=== PATIENT | female | born 1975 | race Caucasian/White ===

== ENCOUNTER 2017-04-26 19:48 | Emergency (ER) | payer BC ==
[2017-04-26] MEDS ORDERED: MORPHINE SULFATE 4 MG/ML SYRINGE IV STA (21:01)
[2017-04-26] MEDS ORDERED: ONDANSETRON 4 MG/2 ML VIAL IVP STA (21:01)
[2017-04-26] MEDS ORDERED: RX INFO: IV CONTRAST WAS GIVEN 1 EACH MISC MISCELLANE PRN (21:01)
[2017-04-26] MEDS ORDERED: SODIUM CHLORIDE 0.9% 1,000 ML IV STA (21:01)
--- NOTE | 2017-04-26 21:05 | ED ---
Nausea/Vomiting/Diarrhea HPI - General Chief complaint: Nausea/Vomiting/Diarrhea Stated complaint: Vomiting x 2 Time Seen by Provider: 04/26/17 20:55 Source: patient, family Mode of arrival: ambulatory Limitations: no limitations - History of Present Illness Initial comments: This 42-year-old white female presents complaining of nausea and vomiting present over the last 2 days. States that it'll occur with any food or fluid intake. She's had occasional loose stools as well. She complains of some abdominal pain which is primarily in the midepigastric region but also present in the bilateral lower abdomen. She denies any blood in her stool or black tarry stools. She does have a history of Crohn's disease. She's never had any surgeries on her abdomen and related to him to the Crohn's. She denies any fevers or chills. No urinary symptoms. She further relates a recent slight cough. No other complaints or modifying factors. - Related Data Home Medications Medication Instructions Recorded Confirmed ALPRAZolam [Xanax] 0.5 mg PO BID PRN 04/26/17 04/26/17 Acetaminophen [Tylenol Arthritis] 650 mg PO Q8H PRN 04/26/17 04/26/17 Albuterol Nebulized [Ventolin 2.5 mg INHALATION RT-Q6H PRN 04/26/17 04/26/17 Nebulized] DULoxetine HCL [Cymbalta] 30 mg PO DAILY 04/26/17 04/26/17 DULoxetine HCL [Cymbalta] 60 mg PO DAILY 04/26/17 04/26/17 Estradiol 0.05MG/24Hr Biwkptch 1 patch TRANSDERM Q48H 04/26/17 04/26/17 [Vivelle-Dot 0.05 MG] Previous Rx's Medication Instructions Recorded Ondansetron [Zofran ODT] 8 mg PO Q8HR PRN #12 tab 04/26/17 traMADol HCl [Ultram] 50 - 100 mg PO Q6H PRN #15 tab 04/26/17 Allergies Allergy/AdvReac Type Severity Reaction Status Date / Time aspirin Allergy Unknown Verified 04/26/17 21:24 hydromorphone [From Dilaudid] Allergy Nausea & Verified 04/26/17 21:24 Vomiting ibuprofen Allergy Abdominal Verified 04/26/17 21:24 Pain prochlorperazine Allergy Unknown Verified 04/26/17 21:24 [From Compazine] Review of Systems ROS Statement: Those systems with pertinent positive or pertinent negative responses have been documented in the HPI. ROS Other: All systems not noted in ROS Statement are negative. Past Medical History Past Medical History: No Reported History History of Any Multi-Drug Resistant Organisms: None Reported Past Surgical History: Hysterectomy Past Psychological History: Anxiety, Depression Smoking Status: Current every day smoker Past Alcohol Use History: None Reported Past Drug Use History: None Reported General Exam - General Exam Comments Initial Comments: GENERAL: The patient is well nourished and well hydrated. VITAL SIGNS: Heart rate, blood pressure, respiratory rate reviewed as recorded in nurse's notes. EYES: Pupils are round and reactive. Extraocular movements are intact. No conjunctival / lid redness or swelling. ENT: No external evidence of injury, swelling, or ecchymosis. Airway is patent. Throat is clear. NECK: Nontender. No swelling or evidence of injury. No subcutaneous emphysema. Trachea is midline. No thyroid mass. HEART: Regular rate and rhythm. Good peripheral pulses. LUNGS/CHEST: Breath sounds clear and equal bilaterally. No rales, rhonchi, or wheezes. No ecchymosis, subcutaneous emphysema, or tenderness. ABDOMEN: There is mild tenderness present to the bilateral lower abdomen as well as the midepigastric region. No palpable masses or organomegaly. No peritoneal signs. No abdominal wall swelling or ecchymosis. EXTREMITIES: No extremity tenderness. Normal muscle tone and function. No thoracolumbar tenderness. NEUROLOGIC: Sensation is grossly intact. Cranial nerve exam reveals face is symmetrical, tongue is midline, speech is clear. SKIN: No abrasions or ecchymosis is noted. No induration or masses noted. PSYCHIATRIC: Alert and oriented. Appropriate behavior and judgment. Limitations: no limitations Course Vital Signs 04/26/17 20:05 Temperature 98.2 F Pulse Rate 89 Respiratory 20 Rate Blood Pressure 152/101 O2 Sat by Pulse 97 Oximetry Medical Decision Making - Medical Decision Making The patient was seen and examined. She is thoroughly hydrated. She also receives some IV fluids and morphine and Zofran. The laboratory is reviewed and is unremarkable. The urinalysis does show some ketones. The patient had a chest x-ray due to her cough. This does not show any acute process. The computed tomography scan of the abdomen and pelvis is also ordered. The computed tomography scan shows some hemangiomas of the liver as well as a peritoneal inclusion cyst. No acute inflammatory intra-abdominal processes noted. She is feeling improved on recheck. She is still minimally nauseated but the pain is relieved. Exact cause of her symptoms are not definitively determine but it is felt as though she potentially could have a gastroenteritis. It is felt less likely that this is a Crohn's flare. Return parameters are discussed and she was subsequently discharge. - Lab Data Result diagrams: 04/26/17 22:00 04/26/17 22:00 Lab Results 04/26/17 04/26/17 04/26/17 Range/Units 22:00 22:00 22:00 WBC 10.0 (3.8-10.6) k/uL RBC 4.82 (3.80-5.40) m/uL Hgb 16.1 H (11.4-16.0) gm/dL Hct 46.0 (34.0-46.0) % MCV 95.5 (80.0-100.0) fL MCH 33.4 (25.0-35.0) pg MCHC 35.0 (31.0-37.0) g/dL RDW 13.3 (11.5-15.5) % Plt Count 266 (150-450) k/uL Neutrophils % 73 % Lymphocytes % 19 % Monocytes % 5 % Eosinophils % 1 % Basophils % 1 % Neutrophils # 7.3 (1.3-7.7) k/uL Lymphocytes # 1.9 (1.0-4.8) k/uL Monocytes # 0.5 (0-1.0) k/uL Eosinophils # 0.1 (0-0.7) k/uL Basophils # 0.1 (0-0.2) k/uL Sodium 140 (137-145) mmol/L Potassium 4.0 (3.5-5.1) mmol/L Chloride 103 (98-107) mmol/L Carbon Dioxide 23 (22-30) mmol/L Anion Gap 14 mmol/L BUN 14 (7-17) mg/dL Creatinine 0.72 (0.52-1.04) mg/dL Est GFR (MDRD) Af Amer >60 (>60 ml/min/1.73 sqM) Est GFR (MDRD) Non-Af >60 (>60 ml/min/1.73 sqM) Glucose 87 (74-99) mg/dL Calcium 9.9 (8.4-10.2) mg/dL Total Bilirubin 1.6 H (0.2-1.3) mg/dL AST 29 (14-36) U/L ALT 26 (9-52) U/L Alkaline Phosphatase 73 (38-126) U/L Total Protein 8.6 H (6.3-8.2) g/dL Albumin 5.1 H (3.5-5.0) g/dL Amylase 68 (30-110) U/L Lipase 64 (23-300) U/L Urine Color Dark Yellow Urine Appearance Cloudy H (Clear) Urine pH 5.5 (5.0-8.0) Ur Specific [place] 1.026 (1.001-1.035) Urine Protein 1+ H (Negative) Urine Glucose (UA) Negative (Negative) Urine Ketones 4+ H (Negative) Urine Blood Small H (Negative) Urine Nitrite Negative (Negative) Urine Bilirubin 1+ H (Negative) Urine Urobilinogen 4.0 (<2.0) mg/dL Ur Leukocyte Esterase Negative (Negative) Urine RBC 5 (0-5) /hpf Ur Squamous Epith Cells 13 H (0-4) /hpf Urine Mucus Many H (None) /hpf Disposition Clinical Impression: Abdominal pain, Nausea and vomiting, Dehydration, Diarrhea, Cough, Hypertension , Gastroenteritis Disposition: HOME SELF-CARE Condition: Good Instructions: Acute Nausea and Vomiting (ED), Abdominal Pain (ED), Gastroenteritis (ED), Dehydration (ED) Prescriptions: Ondansetron [Zofran ODT] 8 mg PO Q8HR PRN #12 tab PRN Reason: Nausea traMADol HCl [Ultram] 50 - 100 mg PO Q6H PRN #15 tab PRN Reason: Pain Referrals: Cristino Aldana DO [Primary Care Provider] - 1-2 days Time of Disposition: 23:28
[2017-04-26 22:11] LABS: Basophils # (A) 0.1 k/uL (0-0.2); Basophils % (A) 1 %; CH 33.7; CHCM 35.4; Eosinophils # (A) 0.1 k/uL (0-0.7); Eosinophils % (A) 1 %; HDW 2.25; HGB 16.1 gm/dL (11.4-16.0); Luc # (Auto) 0.15; Luc % (Auto) 2; Lymphocytes # (A) 1.9 k/uL (1.0-4.8); Lymphocytes % (A) 19 %; MCH 33.4 pg (25.0-35.0); MCV 95.5 fL (80.0-100.0); Monocytes # (A) 0.5 k/uL (0-1.0); Monocytes % (A) 5 %; Neutrophils # (A) 7.3 k/uL (1.3-7.7); Neutrophils % (A) 73 %; RBC 4.82 m/uL (3.80-5.40); RDW 13.3 % (11.5-15.5); WBC (Perox) 9.92
[2017-04-26 22:16] LABS: Appearance,Urine Cloudy (Clear); Bilirubin,Urine 1+ (Negative); Glucose,Urine (UA) Negative (Negative); Ketones,Urine 4+ (Negative); Leukocyte Esterase,Urine Negative (Negative); Mucus,Urine Many /hpf; Nitrite,Urine Negative (Negative); PH, Urine 5.5 (5.0-8.0); Particle Count 16256; Protein,Urine 1+ (Negative); RBC,Urine 5 /hpf (0-5); Specific Gravity,Urine 1.026 (1.001-1.035); Squamous Epithelial Cell,Urine 13 /hpf (0-4); UA Billing (MACRO vs. MICRO) MICRO
[2017-04-26 22:21] LABS: Amylase 68 U/L (30-110); Anion Gap 14 mmol/L; Calcium 9.9 mg/dL (8.4-10.2); Carbon Dioxide 23 mmol/L (22-30); Chloride 103 mmol/L (98-107); Glucose 87 mg/dL (74-99); Non-African American GFR(MDRD) >60 (>60 ml/min/1.73 sqM); Sodium 140 mmol/L (137-145); Total Bilirubin 1.6 mg/dL (0.2-1.3); Total Protein 8.6 g/dL (6.3-8.2)
[2017-04-26 22:22] LABS: AST 29 U/L (14-36); Blood Urea Nitrogen 14 mg/dL (7-17)
[2017-04-26 22:23] LABS: ALT 26 U/L (9-52); Alkaline Phosphatase 73 U/L (38-126)
--- NOTE | 2017-04-26 22:40 | XR ---
INDICATION: Cough COMPARISON: None. FINDINGS: Frontal and lateral views of the chest are obtained. The cardiomediastinal silhouette is within normal limits. Lungs are clear. No pleural effusions. Bony elements are within normal limits. IMPRESSION: No acute cardiopulmonary disease.
--- NOTE | 2017-04-26 23:03 | CT ---
INDICATION: Abdominal pain TECHNIQUE: Helical CT acquisition through the abdomen and pelvis is performed from the lung bases to the ischial tuberosities following the administration of IV contrast. Limited delayed postcontrast images were acquired through the kidneys. Sagittal and coronal reformatted images are available. This CT exam was performed using one or more of the following dose reduction techniques: automated exposure control, adjustment of the mA and/or kV according to patient size, and/or use of iterative reconstruction technique. DOSIMETRY: DLP 864.90 mGy-cm; CTDIvol 22.90 mGy. COMPARISON: None available. FINDINGS: The lung bases are clear. There are multiple hypoattenuating lesions in the liver, the majority subcentimeter and too small to characterize. There is a 13 mm hypoattenuating lesion in hepatic segment 8 (3-11) with peripheral nodular enhancement suggested on early postcontrast images and centripetal fill-in on delayed postcontrast images (5-9), most likely a hemangioma. The gallbladder is unremarkable. The spleen, pancreas, and adrenal glands are within normal limits. Both kidneys are similar in size and enhancement. There is no hydronephrosis or perinephric stranding. There is no evidence of bowel obstruction. The visualized appendix is normal. There is no acute diverticulitis. Urinary bladder is incompletely distended uterus is surgically absent. There is a 4.2 x 1.5 cm left pelvic cystic lesion (3-70), possibly an adnexal cyst or peritoneal inclusion cyst. There is no significant free pelvic fluid. Aorta and IVC are unremarkable. There is no adenopathy. No acute osseous findings. IMPRESSION: 1. No CT evidence of acute or inflammatory intra-abdominal process. 2. Status post hysterectomy. Left pelvic cyst measuring 4.2 x 1.5 cm, possibly an adnexal cyst or peritoneal inclusion cyst. 3. Multiple hypoattenuating lesions in the liver, the largest in hepatic segment 8 measuring 13 mm with imaging features suggesting hemangioma. Additional lesions too small to characterize. Correlation with liver ultrasound may be performed as clinically indicated.
[2017-04-26] MEDS ORDERED: METOCLOPRAMIDE 5 MG/ML 2 ML VIAL IVP STA (23:30)
[2017-04-27 00:02] VITALS: BP 155/92; PULSE 80; RESP 16; TEMP 98.8
== END 2017-04-27 | disposition home or self-care (01) ==
LOC: EC 19:48
DX: E86.0 Dehydration (principal); K52.9 Noninfective gastroenteritis and colitis, unspecified; R05 Cough; I10 Essential (primary) hypertension; F32.9 Major depressive disorder, single episode, unspecified; F41.9 Anxiety disorder, unspecified; F17.200 Nicotine dependence, unspecified, uncomplicated; Z79.899 Other long term (current) drug therapy; Z79.3 Long term (current) use of hormonal contraceptives; Z88.6 Allergy status to analgesic agent; Z88.5 Allergy status to narcotic agent; Z88.8 Allergy status to other drugs, medicaments and biological substances
CPT/HCPCS: 36415; 80053; 82150; 83690; 85025; 81001; 71020; 74177; 99284; 96374; 96375; J2270; J2405; Q9967

== ENCOUNTER → 2020-05-19 | Outpatient (CLI) | payer BC | END | disposition home or self-care (01) | LOC: LABWHC1 12:23 | PROVIDERS: ATTEND Family Medicine | DX: R06.02 Shortness of breath (principal); R07.9 Chest pain, unspecified; J02.9 Acute pharyngitis, unspecified ==

== ENCOUNTER 2020-08-09 09:21 | Observation (INO) | payer BC ==
[2020-08-09] MEDS ORDERED: ASPIRIN 81 MG PO STA (09:27)
[2020-08-09] MEDS ORDERED: NITROGLYCERIN OINT 1 INCH/GM PACKET TOPICAL STA (09:27)
--- NOTE | 2020-08-09 09:32 | ED ---
General Adult HPI - General Stated complaint: Chest Pain Time Seen by Provider: 08/09/20 09:21 Source: patient, RN notes reviewed, old records reviewed - History of Present Illness Initial comments: This is a 45-year-old female with past medical history significant for high blood pressure high cholesterol. Patient also states she is a very strong family history of heart disease. Patient states yesterday she started having ch est pain is been constant since and getting slowly worse per patient states when she woke up this morning the chest pain continued and she was also very short of breath. Patient denies any radiation of the pain. Patient denies nausea vomiting per patient denies any diaphoretic episode. Patient states she went to an urgent care and they gave her nitroglycerin and it brought the pain from a 6 down to a one. Patient states exertion does seem to make the pain worse. Patient denies any palpable chest pain. Patient denies any abdominal pain patient denies any vomiting or diarrhea. Patient denies any recent fever chills or cough per patient denies any swelling to the legs or calf tenderness. - Related Data Home Medications Medication Instructions Recorded Confirmed ALPRAZolam [Xanax] 0.5 mg PO DAILY PRN 04/26/17 08/09/20 Acetaminophen [Tylenol Arthritis] 650 mg PO Q8H PRN 04/26/17 08/09/20 Albuterol Nebulized [Ventolin 2.5 mg INHALATION RT-Q6H PRN 04/26/17 08/09/20 Nebulized] DULoxetine HCL [Cymbalta] 60 mg PO DAILY 04/26/17 08/09/20 Atorvastatin [Lipitor] 20 mg PO HS 08/09/20 08/09/20 Estradiol [Vivelle-Dot 0.075 MG] 1 patch TRANSDERM TUFR 08/09/20 08/09/20 L.acidoph,Paracasei, B.lactis 1 cap PO DAILY 08/09/20 08/09/20 [Probiotic] Ubidecarenone [Co Q-10] 100 mg PO DAILY 08/09/20 08/09/20 lisinopriL [Zestril] 10 mg PO DAILY 08/09/20 08/09/20 Allergies Allergy/AdvReac Type Severity Reaction Status Date / Time aspirin Allergy Unknown Verified 04/26/17 21:24 hydromorphone [From Dilaudid] Allergy Nausea & Verified 04/26/17 21:24 Vomiting ibuprofen Allergy Abdominal Verified 04/26/17 21:24 Pain prochlorperazine Allergy Unknown Verified 04/26/17 21:24 [From Compazine] Review of Systems ROS Statement: Those systems with pertinent positive or pertinent negative responses have been documented in the HPI. ROS Other: All systems not noted in ROS Statement are negative. Past Medical History Past Medical History: No Reported History History of Any Multi-Drug Resistant Organisms: None Reported Past Surgical History: Hysterectomy Past Psychological History: Anxiety, Depression Past Alcohol Use History: None Reported Past Drug Use History: None Reported General Exam - General Exam Comments Initial Comments: GENERAL: Patient is well-developed and well-nourished. Patient is nontoxic and well- hydrated and is in mild distress. ENT: Neck is soft and supple. No significant lymphadenopathy is noted. Oropharynx is clear. Moist mucous membranes. Neck has full range of motion without eliciting any pain. EYES: The sclera were anicteric and conjunctiva were pink and moist. Extraocular movements were intact and pupils were equal round and reactive to light. Eyelids were unremarkable. PULMONARY: Unlabored respirations. Good breath sounds bilaterally. No audible rales rhonchi or wheezing was noted. CARDIOVASCULAR: There is a regular rate and rhythm without any murmurs gallops or rubs. ABDOMEN: Soft and nontender with normal bowel sounds. SKIN: Skin is clear with no lesions or rashes and otherwise unremarkable. NEUROLOGIC: Patient is alert and oriented x3. Cranial nerves II through XII are grossly intact. Motor and sensory are also intact. Normal speech, volume and content. Symmetrical smile. MUSCULOSKELETAL: Normal extremities with adequate strength and full range of motion. LYMPHATICS: No significant lymphadenopathy is noted PSYCHIATRIC: Normal psychiatric evaluation. Course Vital Signs 08/09/20 09:28 Temperature 97.9 F Pulse Rate 85 Respiratory 18 Rate Blood Pressure 122/94 O2 Sat by Pulse 97 Oximetry Medical Decision Making - Medical Decision Making EKG shows normal sinus rhythm at 84 bpm DE interval is on a 56 QRS is 86 QT interval 372 QTC is 439. Patient's EKG shows no ST segment elevation or depression. Chest x-ray showed no acute abnormality. Patient continues to have chest pain. I started the patient on heparin because the unstable angina picture I spoke with Dr. Raines he agreed to admit the patient admitted the patient I wrote admitting orders I consult cardiology continued heparin has been Nitropaste. - Lab Data Result diagrams: 08/09/20 09:40 08/09/20 09:40 Lab Results 08/09/20 08/09/20 08/09/20 Range/Units 09:40 09:40 09:40 WBC 7.8 (3.8-10.6) k/uL RBC 4.17 (3.80-5.40) m/uL Hgb 12.8 (11.4-16.0) gm/dL Hct 38.5 (34.0-46.0) % MCV 92.3 (80.0-100.0) fL MCH 30.7 (25.0-35.0) pg MCHC 33.3 (31.0-37.0) g/dL RDW 12.1 (11.5-15.5) % Plt Count 269 (150-450) k/uL Neutrophils % 58 % Lymphocytes % 29 % Monocytes % 7 % Eosinophils % 3 % Basophils % 1 % Neutrophils # 4.5 (1.3-7.7) k/uL Lymphocytes # 2.2 (1.0-4.8) k/uL Monocytes # 0.6 (0-1.0) k/uL Eosinophils # 0.3 (0-0.7) k/uL Basophils # 0.1 (0-0.2) k/uL PT 9.6 (9.0-12.0) sec INR 0.9 (<1.2) APTT 22.2 (22.0-30.0) sec Sodium 138 (137-145) mmol/L Potassium 4.3 (3.5-5.1) mmol/L Chloride 105 (98-107) mmol/L Carbon Dioxide 26 (22-30) mmol/L Anion Gap 7 mmol/L BUN 11 (7-17) mg/dL Creatinine 0.65 (0.52-1.04) mg/dL Est GFR (CKD-EPI)AfAm >90 (>60 ml/min/1.73 sqM) Est GFR (CKD-EPI)NonAf >90 (>60 ml/min/1.73 sqM) Glucose 101 H (74-99) mg/dL Calcium 9.1 (8.4-10.2) mg/dL Magnesium 1.8 (1.6-2.3) mg/dL Total Bilirubin 0.4 (0.2-1.3) mg/dL AST 25 (14-36) U/L ALT 27 (4-34) U/L Alkaline Phosphatase 96 (38-126) U/L Troponin I (0.000-0.034) ng/mL Total Protein 6.5 (6.3-8.2) g/dL Albumin 4.0 (3.5-5.0) g/dL 08/09/20 Range/Units 09:40 WBC (3.8-10.6) k/uL RBC (3.80-5.40) m/uL Hgb (11.4-16.0) gm/dL Hct (34.0-46.0) % MCV (80.0-100.0) fL MCH (25.0-35.0) pg MCHC (31.0-37.0) g/dL RDW (11.5-15.5) % Plt Count (150-450) k/uL Neutrophils % % Lymphocytes % % Monocytes % % Eosinophils % % Basophils % % Neutrophils # (1.3-7.7) k/uL Lymphocytes # (1.0-4.8) k/uL Monocytes # (0-1.0) k/uL Eosinophils # (0-0.7) k/uL Basophils # (0-0.2) k/uL PT (9.0-12.0) sec INR (<1.2) APTT (22.0-30.0) sec Sodium (137-145) mmol/L Potassium (3.5-5.1) mmol/L Chloride (98-107) mmol/L Carbon Dioxide (22-30) mmol/L Anion Gap mmol/L BUN (7-17) mg/dL Creatinine (0.52-1.04) mg/dL Est GFR (CKD-EPI)AfAm (>60 ml/min/1.73 sqM) Est GFR (CKD-EPI)NonAf (>60 ml/min/1.73 sqM) Glucose (74-99) mg/dL Calcium (8.4-10.2) mg/dL Magnesium (1.6-2.3) mg/dL Total Bilirubin (0.2-1.3) mg/dL AST (14-36) U/L ALT (4-34) U/L Alkaline Phosphatase (38-126) U/L Troponin I <0.012 (0.000-0.034) ng/mL Total Protein (6.3-8.2) g/dL Albumin (3.5-5.0) g/dL Critical Care Time Critical Care Time: Yes Total Critical Care Time: 35 Disposition Clinical Impression: Unstable angina pectoris Disposition: ADMITTED IP TO THIS HOSP Referrals: Cristino Aldana DO [Primary Care Provider] - 1-2 days Time of Disposition: 11:04
[2020-08-09 09:58] LABS: Basophils # (A) 0.1 k/uL (0-0.2); Basophils % (A) 1 %; Eosinophils # (A) 0.3 k/uL (0-0.7); Eosinophils % (A) 3 %; HCT 38.5 % (34.0-46.0); HGB 12.8 gm/dL (11.4-16.0); Lymphocytes # (A) 2.2 k/uL (1.0-4.8); Lymphocytes % (A) 29 %; MCH 30.7 pg (25.0-35.0); MCHC 33.3 g/dL (31.0-37.0); MCV 92.3 fL (80.0-100.0); Mean Platelet Volume 7.1; Monocytes # (A) 0.6 k/uL (0-1.0); Monocytes % (A) 7 %; Neutrophils # (A) 4.5 k/uL (1.3-7.7); Neutrophils % (A) 58 %; Platelet Count 269 k/uL (150-450); RBC 4.17 m/uL (3.80-5.40); RDW 12.1 % (11.5-15.5); WBC 7.8 k/uL (3.8-10.6)
[2020-08-09 10:06] LABS: ALT 27 U/L (4-34); AST 25 U/L (14-36); African American GFR (CKD) >90 (>60 ml/min/1.73 sqM); Alkaline Phosphatase 96 U/L (38-126); Anion Gap 7 mmol/L; Blood Urea Nitrogen 11 mg/dL (7-17); Calcium 9.1 mg/dL (8.4-10.2); Carbon Dioxide 26 mmol/L (22-30); Chloride 105 mmol/L (98-107); Glucose 101 mg/dL (74-99); Magnesium 1.8 mg/dL (1.6-2.3); Non-African American GFR(CKD) >90 (>60 ml/min/1.73 sqM); Potassium 4.3 mmol/L (3.5-5.1); Sodium 138 mmol/L (137-145); Total Bilirubin 0.4 mg/dL (0.2-1.3); Total Protein 6.5 g/dL (6.3-8.2)
[2020-08-09 10:07] LABS: INR 0.9 (<1.2); Partial Thromboplastin Time 22.2 sec (22.0-30.0); Prothrombin Time 9.6 sec (9.0-12.0)
--- NOTE | 2020-08-09 10:07 | XR ---
EXAMINATION TYPE: XR chest 2V DATE OF EXAM: 08/09/2020 COMPARISON: 05/06/2017 TECHNIQUE: PA and lateral views submitted. HISTORY: Chest pain and shortness of breath FINDINGS: The lungs are clear and there is no pneumothorax, pleural effusion, or focal pneumonia. Mild hypert rophic change of the spine. No overt failure. Arthropathy of the right shoulder. Heart size normal. IMPRESSION: 1. No acute process.
[2020-08-09] MEDS ORDERED: LORazepam 2 MG/ML INJ IV STA (10:50)
[2020-08-09] MEDS ORDERED: HEPARIN SODIUM,PORCINE 5,000 UNIT/ML 1 ML VIAL IV ONE (11:03)
[2020-08-09] MEDS ORDERED: NITROGLYCERIN SL TABS 0.4 MG TAB SUBLINGUAL PRN (11:05)
[2020-08-09] MEDS ORDERED: HEPARIN SOD,PORK IN 0.45% NACL 25,000 UNIT in 0.45% NACL 1 250ML.BAG IV SCH (11:15)
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
[2020-08-09] MEDS ORDERED: ESTRADIOL 0.075 MG/24 HR TOPICAL SCH (15:15)
[2020-08-09] MEDS: ACETAMINOPHEN TAB 325 MG TAB PO PRN ×2 (15:26→20:47)
[2020-08-09] MEDS ORDERED: MAG HYDROX/AL HYDROX/SIMETH 30 ML, HYOSCYAMINE ELIXIR 10 ML, LIDOCAINE VISCOUS 2% 10 ML PO PRN ×3 (15:30)
[2020-08-09] MEDS ORDERED: NITROGLYCERIN OINT 1 INCH/GM PACKET TOPICAL SCH (16:00)
[2020-08-09] MEDS ORDERED: RX INFO: IV CONTRAST WAS GIVEN 1 EACH MISC MISCELLANE PRN (20:45)
[2020-08-09] MEDS: ALPRAZolam 0.5 MG TAB PO PRN (20:47)
[2020-08-09] MEDS ORDERED: ATORVASTATIN 20 MG TAB PO SCH (21:00)
--- NOTE | 2020-08-09 21:51 | CT ---
EXAMINATION TYPE: CT chest angio for PE DATE OF EXAM: 08/09/2020 COMPARISON: Chest x-ray same date HISTORY: chest pain CT DLP: 521.2 mGycm Automated exposure control for dose reduction was used. CONTRAST: CT Chest for pulmonary embolism performed with with IV Contrast, patient injected with 80cc mL of Iso efe 370. FINDINGS: LUNGS: The lungs are remarkable for some probable scarring or subsegmental atelectatic changes, some bandlike parenchymal bands present, there is no concerning parenchymal mass or nodule identified. T here is no pleural effusion or pneumothorax seen. The tracheobronchial tree is patent. MEDIASTINUM: There is satisfactory enhancement of the pulmonary artery and its branches, there is no CT evidence for pulmonary embolism. There are no greater than 1 cm hilar or mediastinal lymph nodes. No pericardial effusion is seen. AORTA: No additional significant abnormality is seen. OTHER: No additional significant abnormality is seen. IMPRESSION: No pulmonary embolism.
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
[2020-08-09] MEDS: BUDESONIDE 1 MG/2 ML NEBU INHALATION SCH (22:34)
[2020-08-09] MEDS: IPRATROPIUM-ALBUTEROL 3 ML NEB INHALATION SCH (22:35)
[2020-08-10 04:35] VITALS: TEMP 98.1
[2020-08-10] MEDS: IPRATROPIUM-ALBUTEROL 3 ML NEB INHALATION SCH ×2 (05:16→10:55)
[2020-08-10] MEDS: BUDESONIDE 1 MG/2 ML NEBU INHALATION SCH (05:16)
[2020-08-10] MEDS: ALPRAZolam 0.5 MG TAB PO PRN (05:18)
--- NOTE | 2020-08-10 08:00 | ECHOF ---
Referral Reason:Chest pain MEASUREMENTS -------- HEIGHT: 175.3 cm WEIGHT: 108.9 kg BP: 128/84 IVSd: 1.6 cm (0.6 - 1.1) LVIDd: 3.4 cm (3.9 - 5.3) LVPWd: 1.6 cm (0.6 - 1.1) IVSs: 1.7 cm LVIDs: 2.3 cm LVPWs: 1.9 cm RVIDd: 3.1 cm (< 3.3) LAESV Index (A-L): 16.21 ml/m Ao Diam: 3.0 cm (2.0 - 3.7) AV Cusp: 2.2 cm (1.5 - 2.6) EPSS: 0.3 cm MV E Elías: 0.66 m/s MV DecT: 249 ms MV A Elías: 0.81 m/s MV E/A Ratio: 0.81 RAP: 5.00 mmHg RVSP: 27.55 mmHg MV EF SLOPE: 38.99 mm/s (70 - 150) MV EXCURSION: 17.91 mm (> 18.000) FINDINGS -------- Resting tachycardia (HR>100bpm). This was a technically difficult study with suboptimal apical views. The left ventricular size is normal. There is moderate concentric left ventricular hypertrophy. O verall left ventricular systolic function is normal with, an EF between 60 - 65 %. The diastolic fi lling pattern is normal for the age of the patient 10.33. The right ventricle is normal in size. Normal LA size by volume 22+/-6 ml/m2. The right atrial size is normal. 5.0mg of Lumason was utilized for enhancement of images Interatrial and interventricular septum intact. The aortic valve is trileaflet and appears structurally normal. There is no evidence of aortic regu rgitation. There is no evidence of aortic stenosis. No mitral regurgitation. Mild tricuspid regurgitation present. There is no evidence of pulmonary hypertension. The right v entricular systolic pressure, as measured by Doppler, is 27.55mmHg. There is no pulmonic regurgitation present. The aortic root size is normal. IVC Not well visulized. There is no pericardial effusion. CONCLUSIONS -------- 1. The left ventricular size is normal. 2. There is moderate concentric left ventricular hypertrophy. 3. Overall left ventricular systolic function is normal with, an EF between 60 - 65 %. 4. The diastolic filling pattern is normal for the age of the patient 10.33 5. Mild tricuspid regurgitation present. INSIDE STEWARD/STEWARDESS: Katlyn Rodriguez RDCS
[2020-08-10 08:14] VITALS: BP 124/87; RESP 14
[2020-08-10] MEDS: PANTOPRAZOLE 40 MG TABLET PO SCH ×2 (08:27→08:30)
[2020-08-10] MEDS ORDERED: ASPIRIN 81 MG PO SCH (09:00)
[2020-08-10] MEDS ORDERED: lisinopriL 10 MG TAB PO SCH (09:00)
[2020-08-10] MEDS ORDERED: ASPIRIN 325 MG TAB PO SCH (09:00)
[2020-08-10] MEDS ORDERED: DULoxetine HCL 60 MG CAPSULE.DR PO SCH (09:00)
[2020-08-10] MEDS: ACETAMINOPHEN TAB 325 MG TAB PO PRN (09:50)
--- NOTE | 2020-08-10 10:25 | P.PN ---
Subjective HISTORY OF PRESENTING ILLNESS This is a pleasant 45-year-old female past medical history significant for hypertension, dyslipidemia, depression, COPD and Crohn's. He denies prior history of coronary artery disease and does not follow with a director of aviation for any reason. She is seen and examined sitting up in bed in no acute distress. She has had no further symptoms of chest discomfort. She continues to feel short of breath. She has been started on bronchodilators and steroids per the primary care team. Echocardiogram reveals preserved LV systolic function with ejection fraction 55-60%. Blood pressure 124/87 heart rate 90 afebrile maintaining oxygen saturation on room air. Laboratory data reviewed, cardiac enzymes negative 3. PHYSICAL EXAMINATION CONSTITUTIONAL: No apparent distress. HEENT: Head is normocephalic. Pupils are equal, round. Sclerae anicteric. Mucous membranes of the mouth are moist. No JVD. No carotid bruit. CHEST EXAMINATION: Lungs are clear to auscultation. No chest wall tenderness is noted on palpation or with deep breathing. HEART EXAMINATION: Regular rate and rhythm. S1, S2 heard. No murmurs, gallops or rub. EXTREMITIES: 2+ peripheral pulses, no lower extremity edema and no calf tenderness. ASSESSMENT Chest pain, atypical for angina. Hypertension Dyslipidemia COPD Crohn's disease Depression Morbid obesity, BMI 35 PLAN An acute coronary event has been ruled out. Stable from a cardiac perspective. Follow-up in the office with Dr. Kramer in one to 2 weeks. Ongoing medical management. Nurse Practitioner note has been reviewed, I agree with a documented findings and plan of care. Patient was seen and examined. Objective - Vital Signs Vital signs: Vital Signs Temp 98.1 F 08/10/20 08:12 Pulse 90 08/10/20 08:12 Resp 14 08/10/20 08:12 BP 124/87 08/10/20 08:12 Pulse Ox 94 L 08/10/20 08:12 Intake & Output 08/09/20 08/10/20 08/10/20 18:59 06:59 18:59 Weight 108.862 kg Other: Voiding Method Toilet Toilet # Voids 1 - Labs CBC & Chem 7: 08/09/20 09:40 08/09/20 09:40
[2020-08-10 10:58] VITALS: PULSE 80
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
== END 2020-08-10 11:31 | disposition home or self-care (01) ==
LOC: EC 09:21 → 3NCARDOBS 11:06 → UNDODISOB 16:41
PROVIDERS: ADMIT Hospitalist; ATTEND Hospitalist
DX: J44.1 Chronic obstructive pulmonary disease with (acute) exacerbation (principal); E66.01 Morbid (severe) obesity due to excess calories; K21.9 Gastro-esophageal reflux disease without esophagitis; E78.5 Hyperlipidemia, unspecified; I10 Essential (primary) hypertension; K50.90 Crohn's disease, unspecified, without complications; F41.9 Anxiety disorder, unspecified; F32.9 Major depressive disorder, single episode, unspecified; E78.00 Pure hypercholesterolemia, unspecified; M47.899 Other spondylosis, site unspecified; R60.9 Edema, unspecified; G89.29 Other chronic pain; M54.9 Dorsalgia, unspecified; M54.89 Other dorsalgia; Z79.899 Other long term (current) drug therapy; Z79.890 Hormone replacement therapy; Z88.6 Allergy status to analgesic agent; Z88.5 Allergy status to narcotic agent; Z88.8 Allergy status to other drugs, medicaments and biological substances; Z90.710 Acquired absence of both cervix and uterus; Z68.35 Body mass index [BMI] 35.0-35.9, adult; Z87.19 Personal history of other diseases of the digestive system; Z87.01 Personal history of pneumonia (recurrent); Z87.09 Personal history of other diseases of the respiratory system; Z87.440 Personal history of urinary (tract) infections; Z98.890 Other specified postprocedural states; Z90.722 Acquired absence of ovaries, bilateral; Z90.79 Acquired absence of other genital organ(s); Z82.49 Family history of ischemic heart disease and other diseases of the circulatory system; Z80.1 Family history of malignant neoplasm of trachea, bronchus and lung; Z81.2 Family history of tobacco abuse and dependence
CPT/HCPCS: 93005 ×2; 96376; 96374; 96375; 99291; 36415; 94640 ×2; 93306; 80053; 83735; 84484; 85025; 85610; 85730; 71046; 71275; G0378 ×2; J2060; J1644 ×2; Q9950; Q9967

== ENCOUNTER → 2021-01-10 | Outpatient (CLI) | payer BC | END | disposition home or self-care (01) | LOC: CPPFTMAIN 13:59 | PROVIDERS: ATTEND Family Medicine | DX: J44.9 Chronic obstructive pulmonary disease, unspecified (principal) | CPT/HCPCS: 94060; 94726; 94729 ==

== ENCOUNTER 2021-09-18 13:26 | Emergency (ER) | payer BC ==
[2021-09-18 14:31] VITALS: TEMP 98.4
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
[2021-09-18] MEDS ORDERED: SODIUM CHLORIDE 0.9% 500 ML 500 ML IV STA (15:29)
[2021-09-18 16:07] LABS: ALT 20 U/L (4-34); AST 29 U/L (14-36); African American GFR (CKD) >90 (>60 ml/min/1.73 sqM); Albumin 4.4 g/dL (3.5-5.0); Alkaline Phosphatase 68 U/L (38-126); Anion Gap 7 mmol/L; Blood Urea Nitrogen 11 mg/dL (7-17); Calcium 9.5 mg/dL (8.4-10.2); Carbon Dioxide 25 mmol/L (22-30); Chloride 105 mmol/L (98-107); Glucose 92 mg/dL (74-99); Non-African American GFR(CKD) >90 (>60 ml/min/1.73 sqM); Potassium 4.6 mmol/L (3.5-5.1); Sodium 137 mmol/L (137-145); Total Bilirubin 0.6 mg/dL (0.2-1.3); Total Protein 7.3 g/dL (6.3-8.2)
[2021-09-18 16:13] LABS: Basophils # (A) 0.1 k/uL (0-0.2); Basophils % (A) 1 %; Eosinophils # (A) 0.2 k/uL (0-0.7); Eosinophils % (A) 3 %; HCT 43.4 % (34.0-46.0); HGB 15.2 gm/dL (11.4-16.0); Lymphocytes # (A) 1.8 k/uL (1.0-4.8); Lymphocytes % (A) 31 %; MCH 33.1 pg (25.0-35.0); MCHC 35.1 g/dL (31.0-37.0); MCV 94.1 fL (80.0-100.0); Mean Platelet Volume 7.2; Monocytes # (A) 0.3 k/uL (0-1.0); Monocytes % (A) 5 %; Neutrophils # (A) 3.3 k/uL (1.3-7.7); Neutrophils % (A) 57 %; Platelet Count 314 k/uL (150-450); RBC 4.61 m/uL (3.80-5.40); RDW 13.1 % (11.5-15.5); WBC 5.7 k/uL (3.8-10.6)
--- NOTE | 2021-09-18 16:14 | XR ---
EXAMINATION TYPE: XR chest 2V DATE OF EXAM: 09/18/2021 COMPARISON: Chest x-ray and CTA chest August 09, 2020 HISTORY: Fever and cough. Shortness of breath. TECHNIQUE: Frontal and lateral views of the chest are obtained. FINDINGS: There is no suspicious new focal air space opacity, pleural effusion, or pneumothorax seen . The cardiac silhouette size is stable and within normal limits. The osseous structures are intac t. IMPRESSION: No acute cardiopulmonary process. No significant change from recent prior studies.
[2021-09-18 16:44] LABS: INR 0.9 (<1.2); Prothrombin Time 10.2 sec (9.0-12.0)
[2021-09-18] MEDS ORDERED: CASIRIVIMAB (REGN10933) (EUA) 600 MG, IMDEVIMAB (REGN10987) (EUA) 600 MG in SODIUM CHLO... IVPB ONE (17:00)
[2021-09-18] MEDS ORDERED: SODIUM CHLORIDE 0.9% 50 ML IVPB ONE (17:00)
[2021-09-18 18:17] VITALS: BP 144/99; PULSE 78; RESP 18
== END 2021-09-18 18:16 | disposition home or self-care (01) ==
LOC: EC 13:26
DX: J06.9 Acute upper respiratory infection, unspecified (principal); Z20.822 Contact with and (suspected) exposure to COVID-19; I10 Essential (primary) hypertension; J44.9 Chronic obstructive pulmonary disease, unspecified; K21.9 Gastro-esophageal reflux disease without esophagitis; E78.5 Hyperlipidemia, unspecified; M19.90 Unspecified osteoarthritis, unspecified site; F32.9 Major depressive disorder, single episode, unspecified; F41.9 Anxiety disorder, unspecified; Z79.51 Long term (current) use of inhaled steroids; Z79.82 Long term (current) use of aspirin; Z79.899 Other long term (current) drug therapy
CPT/HCPCS: 36415; 93005; 85379; 80053; 83735; 84484; 85025; 85610; 85730; 87502; 87635; 71046; 99284; 96365; Q0243

== ENCOUNTER → 2023-09-27 | Outpatient (CLI) | payer OTHER ==
--- NOTE | 2023-09-27 16:20 | MR ---
EXAMINATION TYPE: MR liver wo/w con DATE OF EXAM: 09/27/2023 10:30 AM CLINICAL INDICATION:Female, 48 years old with history of K76.9 LIVER DISEASE, UNSPECIFIED; PHH, Abnor mal CT, hx of Crohn's disease. COMPARISON: CT scan abdomen from 04/26/2017. TECHNIQUE: Multiplanar multi-sequence imaging was performed without contrast. Post contrast imaging was performed. Post IV contrast subtraction images were also submitted for review. IV Contrast: 8 cc Gadavist FINDINGS: LOWER CHEST: No gross irregularity. ABDOMEN Liver: No evidence for hepatic steatosis or cirrhosis. Scattered high T2 signal lesions throughout th e liver. These lesions do not demonstrate postcontrast enhancement one in the dome has some mild peripheral en hancement on delayed imaging it measures up to 12 mm. Gallbladder and Bile ducts: No evidence for ductal dilation, or biliary stricture or evidence of chol edocholithiasis. The gallbladder is within normal limits. The extrahepatic bile duct measures up to 6 mm. Pancreas: No ductal dilation. No evidence for solid mass. Spleen: Normal for size. Adrenal glands: Unremarkable. Kidneys: No evidence for obstructive uropathy. No suspicious renal masses. Stomach and Bowel: No evidence for bowel wall thickening or evidence for obstruction. No evidence for bowel wall thickening. No mucosal arterial phase enhancement visualized within the bowel. Peritoneum: No evidence of pneumoperitoneum or free fluid. Vasculature: No aortic aneurysm. Musculoskeletal: The osseous structures appear intact. Lymph Nodes: No gross evidence for lymphadenopathy. Abdominal wall: Unremarkable. IMPRESSION: 1. Right hepatic lobe segment 8 dome lesion with mild peripheral enhancement on delayed imaging is u nchanged in size dating back to 04/26/2017. Finding favors benign etiology given stability and enhancem ent pattern. Finding likely relating to hepatic hemangioma. 2. No evidence for bowel wall thickening to suggest active Crohn's disease.
== END | disposition home or self-care (01) ==
LOC: RADMRIMAIN 09:31
PROVIDERS: ATTEND Internal Medicine Gastroenterology
DX: K76.9 Liver disease, unspecified (principal); R93.89 Abnormal findings on diagnostic imaging of other specified body structures; Z87.19 Personal history of other diseases of the digestive system
CPT/HCPCS: 74183; A9585

== ENCOUNTER 2025-02-06 13:01 | Emergency (ER) | payer OTHER ==
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
--- NOTE | 2025-02-06 13:44 | XR ---
EXAMINATION TYPE: XR chest 2V DATE OF EXAM: 02/06/2025 CLINICAL INDICATION: Female, 50 years old with history of cough, TECHNIQUE: Frontal and lateral views of the chest are obtained. COMPARISON: Chest x-ray September 18, 2021 FINDINGS: There is no focal air space opacity, pleural effusion, or pneumothorax seen. The cardiac silhouette size remains within normal limits. The osseous structures are intact. IMPRESSION: No acute pulmonary infiltrate. [facility], , 02/06/2025 1:41 PM
[2025-02-06] MEDS: SODIUM CHLORIDE 0.9% 1,000 ML IV ONE (15:56)
[2025-02-06] MEDS: ACETAMINOPHEN TAB 325 MG TAB PO STA (15:57)
[2025-02-06 16:07] LABS: Influenza A Not Detected (Not Detectd); Influenza B Not Detected (Not Detectd); RSV Not Detected (Not Detectd)
[2025-02-06 16:23] LABS: Basophils # (A) 0.1 k/uL (0-0.2); Basophils % (A) 1 %; Eosinophils # (A) 0.2 k/uL (0-0.7); Eosinophils % (A) 2 %; HCT 42.3 % (34.0-46.0); HGB 14.5 gm/dL (11.4-16.0); Lymphocytes # (A) 2.5 k/uL (1.0-4.8); Lymphocytes % (A) 32 %; MCH 31.5 pg (25.0-35.0); MCHC 34.2 g/dL (31.0-37.0); Monocytes # (A) 0.3 k/uL (0-1.0); Monocytes % (A) 4 %; Neutrophils # (A) 4.8 k/uL (1.3-7.7); Neutrophils % (A) 60 %; Platelet Count 294 k/uL (150-450); RDW 11.5 % (11.5-15.5)
[2025-02-06 16:24] LABS: Carbon Dioxide 29 mmol/L (22-30); Chloride 101 mmol/L (98-107); Glucose 96 mg/dL (74-99); Sodium 137 mmol/L (137-145)
[2025-02-06 16:25] LABS: ALT 17 U/L (4-34); AST 20 U/L (14-36); African American GFR (CKD) >90 (>60 ml/min/1.73 sqM); Albumin 4.5 g/dL (3.5-5.0); Alkaline Phosphatase 94 U/L (38-126); Anion Gap 7 mmol/L; Blood Urea Nitrogen 12 mg/dL (7-17); Calcium 9.2 mg/dL (8.4-10.2); Non-African American GFR(CKD) >90 (>60 ml/min/1.73 sqM); Total Bilirubin 0.5 mg/dL (0.2-1.3); Total Protein 7.2 g/dL (6.3-8.2)
[2025-02-06] MEDS: IPRATROPIUM-ALBUTEROL 3 ML NEB INHALATION STA (16:42)
[2025-02-06 17:25] LABS: Partial Thromboplastin Time 22.9 sec (22.0-30.0)
[2025-02-06 18:19] VITALS: BP 130/87; PULSE 87; RESP 16; TEMP 98.1
== END 2025-02-06 18:19 | disposition home or self-care (01) ==
LOC: EC 13:01
DX: J06.9 Acute upper respiratory infection, unspecified (principal); B97.89 Other viral agents as the cause of diseases classified elsewhere; J44.9 Chronic obstructive pulmonary disease, unspecified; I10 Essential (primary) hypertension; E78.5 Hyperlipidemia, unspecified; Z88.6 Allergy status to analgesic agent; Z88.5 Allergy status to narcotic agent; Z88.8 Allergy status to other drugs, medicaments and biological substances
CPT/HCPCS: 36415; 71046; 80053; 84484; 85025; 85610; 85730; 87635; 87636; 93005; 94640; 96360; 99285